=== PATIENT | female | born 2000 | race Hispanic/Latino ===

== ENCOUNTER 2018-07-11 10:20 | Observation (INO) | payer BC ==
[2018-07-11 11:19] LABS: Urine Blood 1+ (NEG); Urine Glucose NEGATIVE (NEG); Urine Protein NEGATIVE (NEG)
[2018-07-11 11:20] LABS: Urine Bacteria <20 /HPF (<20); Urine Culture Reflex Order NOT NEEDED; Urine Mucus LIGHT /HPF (NONE SEEN)
[2018-07-11 11:28] LABS: ALT/SGPT 18 U/L (12-78); AST/SGOT 15 U/L (15-37); Albumin 4.4 g/dL (3.4-5.0); Alkaline Phosphatase 162 U/L (45-117); BUN Blood Urea Nitrogen 8 mg/dL (7-18); Bicarbonate 25 mmol/L (21-32); Bilirubin Direct 0.3 mg/dL (0-0.2); Bilirubin Total 1.9 mg/dL (0.2-1.0); Glucose Level 96 mg/dL (74-106); Lipase 66 U/L (73-393); Potassium 3.4 mmol/L (3.5-5.1); Protein, Total 8.4 g/dL (6.4-8.2); Sodium Level 140 mmol/L (136-145)
[2018-07-11 11:34] LABS: Absolute Lymphocytes (CBC) 1.3 K/uL (0.7-4.9); Absolute Monocytes 1.2 K/uL (0.1-1.3); Absolute Neutrophil 15.5 K/uL (1.8-8.0); Basophils % 0.2 % (0-1.3); Eosinophils % 0.1 % (0-4.4); Hematocrit 43.5 % (36.0-45.0); Lymphocytes % 7.5 % (15.3-44.8); MPV 8.1 fL (7.6-11.3); Monocytes % 6.4 % (3.3-12.3); RBC Red Blood Cell Count 4.99 M/uL (3.86-4.86)
[2018-07-11 13:14] LABS: Platelet Estimate ADEQ; Urine White Blood Cell Casts OK
[2018-07-11 13:15] LABS: Blood Morphology Comment NOT SEEN (NOT SEEN)
--- NOTE | 2018-07-11 15:09 | RAD REPORT ---
EXAM DESCRIPTION: CT - Abdomen Pelvis W Contrast - 07/11/2018 2:43 pm CLINICAL HISTORY: Abdominal pain. Right lower quadrant pain COMPARISON: None. TECHNIQUE: Computed axial tomography of the abdomen and pelvis was obtained. 100 cc Isovue-300 is ad ministered intravenously. Oral contrast was given. All CT scans are performed using dose optimization technique as appropriate and may include automated exposure control or mA/KV adjustment according to patient size. FINDINGS: The liver, spleen, pancreas, adrenals and kidneys appear unremarkable. The appendix is thickened with stranding within the adjacent. There is no evidence of diverticulitis 2.2 centimeter right ovarian dermoid IMPRESSION: Appendicitis 2.2 centimeter right ovarian dermoid
[2018-07-11] MEDS ORDERED: METRONIDAZOLE 500mg IVPB 500 MG/100 ML BAG IV ONE (15:36)
[2018-07-11] MEDS ORDERED: CEFOXITIN/SWI 1gm 1 GM/10 ML SYR ONE ×3 (15:36→23:45)
[2018-07-11] MEDS ORDERED: MORPHINE 4 MG/ML SYR ONE (15:36)
[2018-07-11] MEDS ORDERED: ONDANSETRON 4 MG/2 ML VIAL ONE ×2 (15:43→17:44)
--- NOTE | 2018-07-11 15:47 | EDPHYS ---
Physician Documentation [facility] Name: Ailin Ivey Age: 18 yrs Sex: Female : 2000 Arrival Date: 07/11/2018 Time: 10:24 Bed 15 Private MD: None, None ED Physician John Young HPI: 07/11 11:00 This 18 yrs old Female presents to ER via Ambulatory with complaints of cp Abdominal Pain, Vomiting. 11:00 The patient presents with abdominal pain right lower quadrant. Onset: The cp symptoms/episode began/occurred yesterday. 11:00 The symptoms do not radiate. Associated signs and symptoms: Pertinent positives: nausea cp and vomiting, anorexia, Pertinent negatives: blood in stools, constipation, diarrhea, dysuria, fever, vaginal discharge. The symptoms are described as constant. Modifying factors: the symptoms are aggravated by movement, pressure. Severity of pain: in the emergency department the pain is actually worse mildly. 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 - Social history:: Smoking status: Patient/guardian denies using tobacco. - Ebola Screening: : Patient negative for fever greater than or equal to 101.5 degrees Fahrenheit, and additional compatible Ebola Virus Disease symptoms. ROS: 11:10 Constitutional: Negative for body aches, chills, fever, poor PO intake. cp 11:10 Eyes: Negative for injury, pain, redness, and discharge. cp 11:10 ENT: Negative for drainage from ear(s), ear pain, sore throat, difficulty swallowing, difficulty handling secretions. 11:10 Cardiovascular: Negative for chest pain, palpitations. 11:10 Respiratory: Negative for cough, shortness of breath, wheezing. 11:10 Abdomen/GI: Positive for abdominal pain, vomiting, of the right lower quadrant, Negative for diarrhea, constipation, black/tarry stool, rectal bleeding. 11:10 Back: Negative for pain at rest, pain with movement, radiated pain. 11:10 : Negative for urinary symptoms, pelvic pain, vaginal bleeding, vaginal discharge. 11:10 Skin: Negative for cellulitis, rash. 11:10 Neuro: Negative for altered mental status, headache, weakness. 11:10 All other systems are negative. Exam: 11:15 Constitutional: The patient appears in no acute distress, alert, awake, non-toxic, well cp developed, well nourished. 11:15 Head/Face: Normocephalic, atraumatic. cp 11:15 Eyes: Periorbital structures: appear normal, Conjunctiva: normal, no exudate, no injection, Sclera: no appreciated abnormality, Lids and lashes: appear normal, bilaterally. 11:15 ENT: External ear(s): are unremarkable, Nose: is normal, Mouth: Lips: moist, Oral mucosa: pink and intact, moist, Posterior pharynx: is normal, airway is patent, no erythema, no exudate. 11:15 Chest/axilla: Inspection: normal, Palpation: is normal, no crepitus, no tenderness. 11:15 Cardiovascular: Rate: normal, Rhythm: regular, Heart sounds: murmur, not appreciated, JVD: is not appreciated. 11:15 Respiratory: the patient does not display signs of respiratory distress, Respirations: normal, no use of accessory muscles, no retractions, no splinting, no tachypnea, labored breathing, is not present, Breath sounds: are clear throughout, no decreased breath sounds, no stridor, no wheezing. 11:15 Abdomen/GI: Inspection: abdomen appears normal, Bowel sounds: active, all quadrants, Palpation: soft, in all quadrants, moderate abdominal tenderness, in the right lower quadrant, rebound tenderness, is not appreciated, voluntary guarding, is elicited in the right lower quadrant. 11:15 Back: pain, is absent, ROM is normal. 11:15 Skin: no rash present. Vital Signs: 10:32 BP 124 / 83; Pulse 95; Resp 18; Temp 98.1; Pulse Ox 100% ; Weight 53.07 kg; Height 5 sv ft. 2 in. (157.48 cm); Pain 9/10; 11:30 BP 125 / 80; Pulse 77; Resp 15; Pulse Ox 99% on R/A; rb1 12:30 BP 123 / 79; Pulse 68; Resp 16; Pulse Ox 100% on R/A; rb1 13:30 BP 126 / 81; Pulse 88; Resp 17; Pulse Ox 99% ; rb1 14:48 BP 121 / 79; Pulse 89; Resp 16; Pulse Ox 99% on R/A; rb1 15:44 BP 137 / 92; Pulse 103; Resp 16; Pulse Ox 100% on R/A; rb1 16:44 BP 148 / 96; Pulse 102; Resp 16; Pulse Ox 99% on R/A; rb1 10:32 Body Mass Index 21.40 (53.07 kg, 157.48 cm) sv MDM: 10:34 Patient medically screened. cp 11:00 Differential diagnosis: appendicitis, Ectopic , Ovarian Torsion, Pelvic cp Inflammatory Disease, Pyelonephritis, Ureterolithiasis, urinary tract infection. 15:30 Physician consultation: Ok Fuentes MD was contacted at 15:25, regarding patient's cp condition, would like consultation with THERAPY ADMINISTRATIVE ASSISTANT. 15:35 Data reviewed: vital signs, nurses notes, lab test result(s), radiologic studies, CT cp scan, I have discussed the patient's presentation/case with the attending Emergency Department Physician; and as a result, I will admit patient. 15:50 Physician consultation: Rachid Rutledge DO was called at 15:40, regarding admission, to cp the medical/surgical unit. patient's condition, and will see patient in ED, shortly. 07/11 10:49 Order name: Basic Metabolic Panel; Complete Time: 11:34 cp 07/11 11:36 Interpretation: Normal except: K 3.4. cp 07/11 10:49 Order name: CBC with Diff; Complete Time: 15:33 cp 07/11 11:35 Interpretation: Normal except: WBC 18.1; RBC 4.99; YOLANDA% 85.8; LYM% 7.5; NEUT A 15.5. cp 07/11 10:49 Order name: Creatinine for Radiology; Complete Time: 11:34 cp 07/11 10:49 Order name: Hepatic Function; Complete Time: 11:34 cp 07/11 11:35 Interpretation: Normal except: ALK 162; BILIT 1.9; BILID 0.3; TP 8.4; GLOB 4.0. cp 07/11 10:49 Order name: Lipase; Complete Time: 11:34 cp 07/11 10:49 Order name: Urine Microscopic Only; Complete Time: 11:34 cp 07/11 11:35 Interpretation: Normal except: URBC 5-10; SQEPI 5-10. cp 07/11 11:11 Order name: Urine Dipstick--Ancillary (enter results); Complete Time: 11:34 mw2 07/11 15:35 Interpretation: Normal except: UKET 1+; UBLD 1+. cp 07/11 11:11 Order name: Urine --Ancillary (enter results); Complete Time: 11:34 mw2 07/11 11:35 Order name: CT Abd/Pelvis - W/Contrast: give oral contrast; Complete Time: 15:33 cp 07/11 11:35 Order name: CBC Smear Scan; Complete Time: 15:33 EDMS 07/11 10:49 Order name: IV Saline Lock; Complete Time: 11:08 cp 07/11 10:49 Order name: Labs collected and sent; Complete Time: 11:09 cp 07/11 10:49 Order name: Urine Dipstick-Ancillary (obtain specimen); Complete Time: 11:09 cp 07/11 10:49 Order name: Urine Test (obtain specimen); Complete Time: 11:09 cp 07/11 15:16 Order name: NPO; Complete Time: 15:48 cp Administered Medications: 15:30 Drug: Mefoxin 1 grams Route: IVPB; Infused Over: 30 mins; Site: right antecubital; hb 15:30 Drug: Flagyl 500 mg Volume: 100 ml; Route: IVPB; Rate: 200 ml/hr; Infused Over: 30 hb mins; Site: right antecubital; 15:32 Drug: morphine 2 mg Route: IVP; Site: right antecubital; hb 15:36 Drug: Zofran 4 mg Route: IVP; Site: right antecubital; hb Disposition: 07/12 07:56 Co-signature as Attending Physician, John Young MD I agree with the assessment and [facility] plan of care. Disposition: 07/11/18 15:46 Hospitalization ordered by Rachid Rutledge for Observation. Preliminary diagnosis is Acute appendicitis. - Bed requested for Telemetry/MedSurg (observation). - Status is Observation. rb1 - Condition is Stable. - Problem is new. - Symptoms have improved. UTI on Admission? No Signatures: Dispatcher [employer] EDJen Mann RN RN sv Anderson, Corey, MD MD cha Page, Corey, PA PA cp Barber, Rebecca, RN RN rb1 Kayla Mosqueda RN RN Corrections: (The following items were deleted from the chart) 07/11 16:46 15:46 Hospitalization Ordered by Rachid Rutledge DO for Observation. Preliminary rb1 diagnosis is Acute appendicitis. Bed requested for Telemetry/MedSurg (observation). Status is Observation. Condition is Stable. Problem is new. Symptoms have improved. UTI on Admission? No. cp
--- NOTE | 2018-07-11 15:47 | ER ---
Nurse's Notes [facility] Name: Ailin Ivey Age: 18 yrs Sex: Female : 2000 Arrival Date: 07/11/2018 Time: 10:24 Bed 15 Private MD: None, None Diagnosis: Acute appendicitis Presentation: 07/11 10:31 Presenting complaint: Patient states: lower abd pain with R>L, n/v x 1 day. Transition sv of care: patient was not received from another setting of care. Onset of symptoms was July 10, 2018. Care prior to arrival: None. 10:31 Method Of Arrival: Ambulatory sv 10:31 Acuity: COCO 3 sv 10:35 Risk Assessment: Do you want to hurt yourself or someone else? Patient reports no rb1 desire to harm self or others. Initial Sepsis Screen: Does the patient meet any 2 criteria? No. Patient's initial sepsis screen is negative. Does the patient have a suspected source of infection? No. Patient's initial sepsis screen is negative. 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 - Social history:: Smoking status: Patient/guardian denies using tobacco. - Ebola Screening: : Patient negative for fever greater than or equal to 101.5 degrees Fahrenheit, and additional compatible Ebola Virus Disease symptoms. Screenin:35 Abuse screen: Denies threats or abuse. Nutritional screening: No deficits noted. rb1 Tuberculosis screening: No symptoms or risk factors identified. Fall Risk None identified. Assessment: 10:35 General: Appears in no apparent distress. comfortable, Behavior is calm, cooperative, rb1 Denies fever. Pain: Complains of pain in right lower quadrant Pain currently is 6 out of 10 on a pain scale. Pain began this morning. Pain: Pain does not radiate. Neuro: Level of Consciousness is awake, alert, obeys commands, Oriented to person, place, time, situation. Cardiovascular: Capillary refill < 3 seconds is brisk in bilateral fingers. Respiratory: Airway is patent Respiratory effort is even, unlabored, Respiratory pattern is regular, symmetrical. GI: Bowel sounds present X 4 quads. Abd is soft Reports nausea, vomiting, since 0300 this morning. : No signs and/or symptoms were reported regarding the genitourinary system. Derm: Skin is pink, warm \T\ dry. Musculoskeletal: cerebral palsy. 11:30 Reassessment: Patient appears in no apparent distress at this time. No changes from rb1 previously documented assessment. Family at bedside. 12:30 Reassessment: Patient appears in no apparent distress at this time. Patient and/or rb1 family updated on plan of care and expected duration. Pain level reassessed. Patient is alert, oriented x 3, equal unlabored respirations, skin warm/dry/pink. 13:30 Reassessment: Patient appears in no apparent distress at this time. No changes from rb1 previously documented assessment. Pt. is on her phone. 14:30 Reassessment: Patient appears in no apparent distress at this time. Patient and/or rb1 family updated on plan of care and expected duration. Pain level reassessed. Patient is alert, oriented x 3, equal unlabored respirations, skin warm/dry/pink. 15:30 Reassessment: Patient appears in no apparent distress at this time. No changes from rb1 previously documented assessment. Family at bedside. 15:49 Reassessment: Dr. Rutledge is at bedside. rb1 16:30 Reassessment: Patient appears in no apparent distress at this time. Patient and/or rb1 family updated on plan of care and expected duration. Pain level reassessed. Patient is alert, oriented x 3, equal unlabored respirations, skin warm/dry/pink. Family at bedside. Vital Signs: 10:32 BP 124 / 83; Pulse 95; Resp 18; Temp 98.1; Pulse Ox 100% ; Weight 53.07 kg; Height 5 sv ft. 2 in. (157.48 cm); Pain 9/10; 11:30 BP 125 / 80; Pulse 77; Resp 15; Pulse Ox 99% on R/A; rb1 12:30 BP 123 / 79; Pulse 68; Resp 16; Pulse Ox 100% on R/A; rb1 13:30 BP 126 / 81; Pulse 88; Resp 17; Pulse Ox 99% ; rb1 14:48 BP 121 / 79; Pulse 89; Resp 16; Pulse Ox 99% on R/A; rb1 15:44 BP 137 / 92; Pulse 103; Resp 16; Pulse Ox 100% on R/A; rb1 16:44 BP 148 / 96; Pulse 102; Resp 16; Pulse Ox 99% on R/A; rb1 10:32 Body Mass Index 21.40 (53.07 kg, 157.48 cm) ED Course: 10:24 Patient arrived in ED. mr 10:24 None, None is Private Physician. mr 10:32 Triage completed. sv 10:33 John Chanel PA is PHCP. cp 10:33 John Young MD is Attending Physician. cp 10:33 Arm band placed on. sv 10:35 Patient has correct armband on for positive identification. Bed in low position. Call rb1 light in reach. Side rails up X 1. Pulse ox on. NIBP on. 10:40 Mariaa Simmons RN is Primary Nurse. rb1 11:00 Urine collected: clean catch specimen, clear. dh3 11:01 Initial lab(s) drawn, by az, sent to lab. Inserted saline lock: 22 gauge in right dh3 antecubital area, using aseptic technique. Blood collected. 14:43 CT Abd/Pelvis - W/Contrast: give oral contrast In Process Unspecified. EDMS 15:45 Rachid Rutledge DO is Hospitalizing Provider. cp 16:46 No provider procedures requiring assistance completed. Patient admitted, IV remains in rb1 place. Administered Medications: 15:30 Drug: Mefoxin 1 grams Route: IVPB; Infused Over: 30 mins; Site: right antecubital; hb 15:30 Drug: Flagyl 500 mg Volume: 100 ml; Route: IVPB; Rate: 200 ml/hr; Infused Over: 30 hb mins; Site: right antecubital; 15:32 Drug: morphine 2 mg Route: IVP; Site: right antecubital; hb 15:36 Drug: Zofran 4 mg Route: IVP; Site: right antecubital; hb Outcome: 15:46 Decision to Hospitalize by Provider. cp 16:46 Patient left the ED. rb1 16:46 Admitted to OR accompanied by nurse, family with patient, via stretcher, with chart. rb1 16:46 Condition: stable 16:46 Instructed on the need for admit. Signatures: Dispatcher [employer] EDAZ Jen Ramirez RN RN Jackie Pierce mr Page, ANGELA Lopez cp, Rebecca, RN RN rb1 Kayla Mosqueda, RN RN Maria Del Rosario Briseno 3
--- NOTE | 2018-07-11 16:31 | P.HP ---
Certification for Inpatient Patient admitted to: Observation With expected LOS: <2 Midnights Patient will require the following post-hospital care: None Practitioner: I am a practitioner with admitting privileges, knowledge of patient current condition, hospital course, and medical plan of care. Services: Services provided to patient in accordance with Admission requirements found in Title 42 Section 412.3 of the Code of Federal Regulations Patient History Date of Service: 07/11/18 Primary Care Provider: None Reason for admission: Right lower quadrant abdominal pain History of Present Illness: 18-year-old female with prior history of cerebral palsy and distant seizure disorder. She came in with right lower quadrant abdominal pain over the last day. She had some increased nausea and vomiting today. Pain was severe. Patient denies any chest pain, shortness of breath. Some chills noted. She came to the ER for further evaluation. In the ER patient evaluated. White count 18.1, hemoglobin 14.8. Sodium 140, potassium 3.4. Glucose 96. test negative. CT scan shows acute appendicitis. An incidental finding of a 2.2 right ovarian dermoid also noted. Patient will be admitted for further evaluation and treatment. Surgery has been informed. When I saw the patient in the ER, pain under control. Patient reported a rash with morphine. Patient does not take any medication. Patient reports a history of seizures but in the distant past. It has been over 8 years since her last seizure. She was previously seen by Pediatrics and pediatric neurology. She is not seen them since turning 16. With her cerebral palsy she has some mobility issues. She has numbness to the left side. Home medications list reviewed: No - Past Medical/Surgical History Diabetic: No -: Cerebral palsy with mobility dysfunction -: History of distant seizures -: Left foot surgery Psychosocial/ Personal History: Patient lives with her mother. She is single. She has no children - Family History Mother -: Cancer (Strong family history of triple negative breast cancer) - Social History Smoking Status: Never smoker Alcohol use: No CD- Drugs: No Caffeine use: No Place of Residence: Home Review of Systems General: Fever, Chills, Weakness, As per HPI Eyes: Unremarkable ENT: Unremarkable Respiratory: Unremarkable Cardiovascular: Unremarkable Gastrointestinal: Nausea, Vomiting, Abdominal Pain, As per HPI Genitourinary: Unremarkable Musculoskeletal: Unremarkable Integumentary: Unremarkable Neurological: Unremarkable Lymphatics: Unremarkable Physical Examination - Physical Exam General: Alert, In no apparent distress, Oriented x3, Cooperative HEENT: Atraumatic, Normocephalic, Mucous membr. moist/pink Neck: Supple, No Thyromegaly Respiratory: Clear to auscultation bilaterally, Normal air movement Cardiovascular: Normal pulses, Regular rate/rhythm Gastrointestinal: Normal bowel sounds, Soft and benign, Non-distended, No masses , No rebound, No guarding, Tenderness (Mild pain to the right lower quadrant with palpation) Musculoskeletal: No tenderness, No warmth, Other (Some leg leak discrepancy noted. Numbness to the left side due to her cerebral palsy. Left lower extremity externally rotated) Integumentary: No warmth, No cyanosis Neurological: Normal speech, Normal strength at 5/5 x4 extr, Normal tone, Normal affect - Studies Laboratory Data (last 24 hrs) 07/11/18 11:00: Creatinine 0.57 07/11/18 11:00: WBC 18.1 H, Hgb 14.8, Hct 43.5, Plt Count 369 07/11/18 11:00: Sodium 140, Potassium 3.4 L, BUN 8, Creatinine 0.58, Glucose 96 , Total Bilirubin 1.9 H, AST 15, ALT 18, Alkaline Phosphatase 162 H, Lipase 66 L Assessment and Plan - Plan Impression: Nausea, vomiting with right lower quadrant abdominal pain secondary to acute appendicitis with noted 2.2 cm ovarian dermoid Cerebral palsy with mobility dysfunction History of distant seizures not on medication Plan: Nausea, vomiting with right lower quadrant abdominal pain secondary to acute appendicitis with noted 2.2 cm ovarian dermoid: Patient will be admitted for further evaluation and treatment. Surgery has been consulted. Surgery may console gynecology to further address ovarian dermoid. Patient will likely have surgical intervention today. Will keep the patient NPO. Mefoxin and Flagyl has been started. Will continue with SCDs for DVT prophylaxis. Discontinue morphine as this may have caused a mild rash. Will provide other alternative. I will turn the service over to Dr. Bryant tomorrow. I will go over the plan of care with her. Likely discharge in the next 24 hr. Cerebral palsy with mobility dysfunction: This has remained stable. She has not followed up with a PCP in over 2 years since she turned 16. She had a manager budget and a pediatric neurologist prior to that time. Patient will need PCP information to establish care as an outpatient. History of distant seizures not on medication: Last seizure noted a years ago. Patient not on any medication. She has seen pediatric Neurology in the past. Discharge Plan: Home Plan to discharge in: 24 Hours - Advance Directives Does patient have a Living Will: No Does patient have a Durable POA for Healthcare: No - Code Status/Comfort Care Code Status Assessed: Yes (Patient full code.) Time Spent Managing Pts Care (In Minutes): 55
[2018-07-11] MEDS ORDERED: BUPIVACAINE 0.5% PF 10 ML VIAL ONE (17:01)
[2018-07-11] MEDS ORDERED: ACETAMINOPHEN 650MG/RECT SUPP PR PRN (17:04)
[2018-07-11] MEDS ORDERED: ACETAMINOPHEN 500 MG TAB PO PRN (17:04)
[2018-07-11] MEDS ORDERED: ONDANSETRON 4 MG/2 ML VIAL IV PRN (17:04)
[2018-07-11] MEDS ORDERED: FENTANYL CITR 100 MCG/2 ML IV PRN (17:04)
[2018-07-11] MEDS: NA CHLORIDE 0.9% 1,000 ML IV SCH ×2 (17:04→20:07)
[2018-07-11] MEDS ORDERED: Ringers Lactate 1,000 ML IV ONE (17:11)
[2018-07-11] MEDS ORDERED: ROCURONIUM 50 MG/5 ML VIAL IV ONE ×2 (17:26→17:27)
[2018-07-11] MEDS ORDERED: PROPOFOL 200 MG/20 ML VIAL IV ONE (17:26)
[2018-07-11] MEDS ORDERED: FENTANYL CITR 100 MCG/2 ML ONE (17:28)
[2018-07-11] MEDS ORDERED: LIDOCAINE 2% MPF 5 ML VIAL ONE (17:29)
[2018-07-11] MEDS ORDERED: KETOROLAC 30 MG/ML INJ ONE (17:44)
[2018-07-11] MEDS ORDERED: DEXAMETHASONE 10 MG/ML VIAL ONE (17:44)
[2018-07-11] MEDS ORDERED: NEOSTIGMINE 1 MG/ML -10 ML VIAL ONE (17:58)
[2018-07-11] MEDS ORDERED: GLYCOPYRROLATE 0.2 MG/ML SYR ONE (17:58)
[2018-07-11] MEDS ORDERED: CEFOXITIN/SWI 1gm 1 GM/10 ML SYR IVP SCH (18:00)
[2018-07-11] MEDS ORDERED: CEFOXITIN SODIUM 1 GM/VIAL IVPB SCH (18:00)
--- NOTE | 2018-07-11 18:10 | P.OP ---
Preoperative diagnosis: Acute Appy Postoperative diagnosis: same Primary procedure: Lap Appy Anesthesia: gen Estimated blood loss: min Specimen: appy Findings: as above Complications: None Transferred to: Recovery Room Condition: Good
--- NOTE | 2018-07-11 18:10 | P.CNS ---
Date of Consult: 07/11/18 Patient is a 18-year-old G0 LMP 06/21/2018 who presented to the emergency department with acute right lower quadrant pain. Patient was evaluated by the medicine team as well as General surgery and was found to have acute appendicitis. At the time 1 imaging was performed patient was also noted to have a right ovarian 2.2 cm dermoid cyst. I was called to evaluate the cyst intraoperatively. During procedure was allowed to visualize the ovaries and the uterus uterus appears normal no fibroids noted bilateral fallopian tubes appeared normal. Both ovaries appear slightly enlarged. Dermoid cyst is not visible is intrathecal. The right ovary does appear slightly enlarged as compared to the left ovary. However it also seems very cystic. There is no clear plane in the way of the dermoid may be located on the cyst. I informed general anesthesia at this time that I feel it would be best to hold off on performing the surgery. I recommended that we should do serial evaluations of the ovaries with ultrasound monitoring and if pain develops or if the cyst begins to grow larger than we will plan for surgical excision of the cyst and possible oophorectomy 1 the patient is able to give full consent for oophorectomy. I then relate these findings to the family. All questions were answered. I informed the family that the patient should follow up with me in 2 weeks. Patient is to call the office on Thursday and inform them and schedule an appointment. Thank you for consultation.
[2018-07-11] MEDS ORDERED: Mastisol Adhesive Liq ONE (18:15)
[2018-07-11] MEDS ORDERED: HYDROCODONE/APAP 7.5/325 MG TAB PO PRN (18:23)
[2018-07-11] MEDS: FAMOTIDINE 20 MG/2 ML VIAL IV SCH (20:07)
[2018-07-11] MEDS: KCL 20 MEQ/100 mL IVPB 20 MEQ/100 ML BAG IV SCH ×2 (20:09→23:02)
--- NOTE | 2018-07-11 21:07 | PREOPCON ---
Date of Consultation: 07/11/2018 Chief Complaint: Abdominal pain. History Of Present Illness: The patient is a 18-year-old female, comes in with acute onset of right lower quadrant pain associated with vomiting and nausea. No diarrhea or constipation. No blood in h er stool. No dysuria, hematuria. No sore throat, runny nose, cough, headaches, or dizziness. No ch est pain. No fever or chills. Constant in nature. No vaginal discharge. Review of Systems: Otherwise unremarkable. Past Medical History: Significant for cerebral palsy, and seizure disorder. Last seizure being grea ter than 8 years ago. Past Surgical History: Foot surgery. Allergies: INCLUDE PENICILLIN. Social History: She does not smoke or drink. Family History: Significant and noncontributory. Physical Examination: Vital signs: Her vital signs are stable. She is currently afebrile. General: She is awake, alert, and oriented x3. Head and Neck: Cranial nerves 2 through 12 grossly within normal limits. No neck masses. No JVD. Throat clear. Neck is supple. Chest: Clear. Heart: S1 and S2. Abdomen: Soft, nondistended. Positive bowel sounds. Positive Rovsing sign. Positive right lower q uadrant tenderness with rebound. No rigidity or guarding. Extremity: Adequately perfused. Nontender. Neuro: Nonfocal. Diagnostic Data: CT scan of the abdomen and pelvis shows findings consistent with acute appendicitis as well as right ovarian dermoid cyst 2.2 cm. White count is elevated at 18,000. Remaining of labo ratory data reviewed. Assessment: Acute appendicitis and right ovarian mass. Recommendation: Admit n.p.o., IV fluid, IV antibiotic, to the OR for diagnostic lab. Laparoscopic a ppendectomy, possible open. I discussed the case with Dr. Grande who will come and evaluate the ovari es to see if any intervention needs to be done with regard to that and she will determine that proces s. The patient's family understand the risks, benefits, and alternatives and agreed to procedure. /MODL Voice ID: [id number] Report ID: [id number]
[2018-07-11] MEDS: CEFOXITIN/SWI 1gm 1 GM/10 ML SYR IVP SCH (23:24)
--- NOTE | 2018-07-11 23:31 | OP ---
Date of Procedure: 07/11/2018 Surgeon: Ok Fuentes MD Preoperative Diagnoses: 1.Acute appendicitis. 2.Right ovarian mass. Postoperative Diagnoses: 1.Acute appendicitis. 2.Right ovarian mass. Procedure Peformed: Diagnostic laparoscopy and laparoscopic appendectomy. Estimated Blood Loss: Minimal. Specimen: Appendix. Findings: As above. Right ovarian cyst was identified and Dr. Grande did an intraoperative consultat ion on it. Anesthesia: General. Complications: None. Disposition: The patient tolerated the procedure in stable condition and taken to Recovery in good g eneral condition. Procedure In Detail: The patient was brought to the OR and placed in supine position. General anest hesia was began. The patient was prepped and draped in usual sterile fashion. Marcaine 0.5% was inf iltrated locally. A 15 blade was used to make a 1 cm supraumbilical midline incision. Subcutaneous tissue was divided. The fascia was identified and divided. A #1 Vicryl stay suture was placed. Per itoneal cavity was entered with sharp and blunt dissection. A 12 mm trocar was placed into the perit mendoza cavity under direct vision. Pneumoperitoneum was established. Then, two 5 mm trocars were anel tracie, 1 in the left lower quadrant and 1 in the suprapubic region. Diagnostic laparoscopy revealed no rmal liver, normal gallbladder, normal colon, normal intestine, normal peritoneal surface. The uteru s and left ovary were within normal limits. Right ovary appeared a little enlarged. Appendix was co nsistent with acute suppurative appendicitis and was fairly long. Base of the appendix and mesoappen alexandra clearly identified. Endo-JAZMINE stapling device was used in a sequential fashion to divide both str uctures and then EndoCatch bag was used to remove the appendix. The right lower quadrant was examine d. No evidence of bleeding or bowel injury appreciated. Effluent clear. Then, Dr. Grande was consul mukesh. She evaluated the ovary and opted to repeat the ultrasound in few months and then re-evaluate t he situation. She discussed all of the options with the family. Subsequently, all trocars were deborah christina under direct vision. Stay sutures were tied to each other across the fascial defect. Subcutaneo us wounds were irrigated. Bleeding controlled with cautery. 2-0 chromic was used to approximate sub cutaneous tissue and close the skin. Sterile dressing was applied. The patient was awakened and benny en to Recovery in good general condition. BRIANNA/FELISA Voice ID: [id number] Report ID: [id number]
[2018-07-12] MEDS: METRONIDAZOLE 500mg IVPB 500 MG/100 ML BAG IV SCH ×2 (01:31→09:06)
[2018-07-12] MEDS: NA CHLORIDE 0.9% 1,000 ML IV SCH (02:53)
[2018-07-12] MEDS: CEFOXITIN/SWI 1gm 1 GM/10 ML SYR IVP SCH ×2 (05:25→11:51)
[2018-07-12 06:09] LABS: Absolute Lymphocytes (CBC) 0.7 K/uL (0.7-4.9); Absolute Monocytes 0.2 K/uL (0.1-1.3); Absolute Neutrophil 11.5 K/uL (1.8-8.0); Basophils % 0.1 % (0-1.3); Hematocrit 38.3 % (36.0-45.0); Lymphocytes % 5.4 % (15.3-44.8); MPV 8.2 fL (7.6-11.3); Monocytes % 1.5 % (3.3-12.3); RBC Red Blood Cell Count 4.36 M/uL (3.86-4.86)
[2018-07-12 06:30] LABS: ALT/SGPT 17 U/L (12-78); AST/SGOT 15 U/L (15-37); Albumin 3.5 g/dL (3.4-5.0); Alkaline Phosphatase 130 U/L (45-117); BUN Blood Urea Nitrogen 10 mg/dL (7-18); Bicarbonate 21 mmol/L (21-32); Bilirubin Total 1.4 mg/dL (0.2-1.0); Glucose Level 111 mg/dL (74-106); Magnesium 2.1 mg/dL (1.8-2.4); Potassium 4.2 mmol/L (3.5-5.1); Protein, Total 7.2 g/dL (6.4-8.2); Sodium Level 138 mmol/L (136-145)
[2018-07-12] MEDS: FAMOTIDINE 20 MG/2 ML VIAL IV SCH (09:06)
--- NOTE | 2018-07-12 10:37 | P.SSS ---
Patient History Date of Service: 07/12/18 Primary Care Provider: None Reason for admission: Right lower quadrant abdominal pain History of Present Illness: 18-year-old female with prior history of cerebral palsy and distant seizure disorder. She came in with right lower quadrant abdominal pain over the last day. She had some increased nausea and vomiting today. Pain was severe. Patient denies any chest pain, shortness of breath. Some chills noted. She came to the ER for further evaluation. In the ER patient evaluated. White count 18.1, hemoglobin 14.8. Sodium 140, potassium 3.4. Glucose 96. test negative. CT scan shows acute appendicitis. An incidental finding of a 2.2 right ovarian dermoid also noted. Patient will be admitted for further evaluation and treatment. Surgery has been informed. When I saw the patient in the ER, pain under control. Patient reported a rash with morphine. Patient does not take any medication. Patient reports a history of seizures but in the distant past. It has been over 8 years since her last seizure. She was previously seen by Pediatrics and pediatric neurology. She is not seen them since turning 16. With her cerebral palsy she has some mobility issues. She has numbness to the left side. Allergies Penicillins Adverse Reaction (Verified 07/11/18 18:07) rash, swollen eye lids morphine Adverse Reaction (Uncoded 07/11/18 20:21) Rash Home Medications: NK [No Home Meds] 07/11/18 - Past Medical/Surgical History Has patient received pneumonia vaccine in the past: No Diabetic: No -: cerebral palsy -: seizure -: weakness L arm -: Left foot surgery Psychosocial/ Personal History: Patient lives with her mother. She is single. She has no children - Family History Mother -: Cancer - Social History Smoking Status: Never smoker Alcohol use: No CD- Drugs: No Caffeine use: No Place of Residence: Home Review of Systems 10-point ROS is otherwise unremarkable Physical Examination - Vital Signs Temperature: 97.8 F Blood Pressure: 104/54 Pulse: 68 Respirations: 18 Pulse Ox (%): 99 - Physical Exam General: Alert, In no apparent distress HEENT: Atraumatic, PERRLA, Mucous membr. moist/pink, EOMI, Sclerae nonicteric Neck: Supple, 2+ carotid pulse no bruit, No LAD, Without JVD or thyroid abnormality Respiratory: Clear to auscultation bilaterally, Normal air movement Cardiovascular: Regular rate/rhythm, Normal S1 S2 Gastrointestinal: Normal bowel sounds, No tenderness Musculoskeletal: No tenderness Integumentary: No rashes Neurological: Normal gait, Normal speech, Normal strength at 5/5 x4 extr, Normal tone, Normal affect Lymphatics: No axilla or inguinal lymphadenopathy - Studies Laboratory Data (last 24 hrs) 07/11/18 11:00: Creatinine 0.57 07/11/18 11:00: WBC 18.1 H, Hgb 14.8, Hct 43.5, Plt Count 369 07/11/18 11:00: Sodium 140, Potassium 3.4 L, BUN 8, Creatinine 0.58, Glucose 96 , Total Bilirubin 1.9 H, AST 15, ALT 18, Alkaline Phosphatase 162 H, Lipase 66 L - Diagnosis (Problem(s)) (1) Acute appendicitis Current Visit: Yes Status: Acute Treatment Summary: Over all during the hospital stay patient remained stable Patient was initially admitted to the hospital for acute appendicitis. At time of surgery consulted. At laparoscopic removal of the appendix and did well overall. Patient was discharged home under stable condition with the general surgery about 1-2 days post discharge. Patient was able to ambulate covered her diet and has passed gas before discharge home. - Disposition Disposition: ROUTINE DISCHARGE Condition: GOOD Diet: Regular Activity: Ad roya
--- NOTE | 2018-07-12 16:24 | PN ---
Subjective: The patient is awake, alert. No complaint. Objective: VITAL SIGNS: Vital signs stable, afebrile. White count is down to 12,000. ABDOMEN: Benign. Assessment: Status post laparoscopic appendectomy. Plan: The patient cleared from surgical point for discharge. Simin ordered Tylenol No [address] for [address] Follow with Dr. Grande regarding the right ovarian cyst. No heavy lifting. Keep Steri-Str ips on at all times. /MODL Voice ID: [id number] Report ID: [id number]
== END 2018-07-12 12:21 | disposition home or self-care (01) ==
LOC: ER 10:20 → ERHOLD 16:10 → 4TH 18:30
PROVIDERS: ADMIT Family Medicine; ATTEND Family Medicine
PROC: 0DTJ4ZZ Resection of Appendix, Percutaneous Endoscopic Approach (ICD-10-PCS; principal; 2018-07-11 17:30)
DX: K35.80 Unspecified acute appendicitis (principal); G80.4 Ataxic cerebral palsy; R11.2 Nausea with vomiting, unspecified; D27.0 Benign neoplasm of right ovary; Z88.0 Allergy status to penicillin; Z88.6 Allergy status to analgesic agent
CPT/HCPCS: 36415; 74177; 80048; 80053; 80076; 81003; 81015; 81025; 83690; 83735; 85025; 87040; 88304; 96374; 96375; 99285; G0378; J1100; J2405; J2704; J2710; J3010; J7030; Q9967

== ENCOUNTER 2019-03-10 11:08 | Day surgery (SDC) | payer BC ==
[2019-03-07 14:23] LABS: Urine Appearance CLOUDY; Urine Bilirubin NEGATIVE (NEG); Urine Blood NEGATIVE (NEG); Urine Color YELLOW; Urine Glucose NEGATIVE (NEG); Urine Protein NEGATIVE (NEG); Urine Urobilinogen 0.2 mg/dL (0.2-1.0)
[2019-03-07 14:38] LABS: Urine Microscopic Reflex ORDER UMIC
[2019-03-07 14:41] LABS: Absolute Lymphocytes (CBC) 2.1 K/uL (0.7-4.9); Basophils % 0.6 % (0-1.3); Hematocrit 40.9 % (36.0-45.0); Lymphocytes % 38.5 % (15.3-44.8); MPV 7.9 fL (7.6-11.3); RBC Red Blood Cell Count 4.72 M/uL (3.86-4.86)
[2019-03-07 15:18] LABS: Urine Bacteria 20-50 /HPF (<20); Urine Culture Reflex Order REFLEXED; Urine RBC <5 /HPF (NONE SEEN)
[~2019-03-10 11:08] MED LIST: SUCCINYLCHOLINE 20 MG/ML (10 ML) IV ONE
[2019-03-10] MEDS ORDERED: SCOPOLAMINE HYDROBROMIDE PATCH TD ONE (11:40)
[2019-03-10] MEDS ORDERED: Ringers Lactate 1,000 ML IV ONE ×3 (11:40→16:28)
[2019-03-10] MEDS ORDERED: BUPIVACAINE 0.25% PF 10 ML VIAL ONE (14:27)
[2019-03-10] MEDS ORDERED: propofoL 200 MG/20 ML VIAL IV ONE (14:30)
[2019-03-10] MEDS ORDERED: LIDOCAINE 2% MPF 5 ML VIAL ONE (14:31)
[2019-03-10] MEDS ORDERED: ROCURONIUM 50 MG/5 ML VIAL IV ONE (14:31)
[2019-03-10] MEDS ORDERED: FENTANYL CITR 100 MCG/2 ML ONE ×2 (14:32→15:27)
[2019-03-10] MEDS: BUPIVACAINE 0.25% PF 10 ML VIAL ONE ×2 (14:46→15:15)
[2019-03-10] MEDS ORDERED: KETOROLAC 30 MG/ML INJ ONE (15:17)
[2019-03-10] MEDS ORDERED: ONDANSETRON 4 MG/2 ML VIAL ONE ×2 (15:18→17:01)
[2019-03-10] MEDS ORDERED: dexAMETHasone 10 MG/ML VIAL ONE (15:18)
[2019-03-10] MEDS ORDERED: NEOSTIGMINE 1 MG/ML -10 ML VIAL ONE (15:24)
[2019-03-10] MEDS ORDERED: GLYCOPYRROLATE 0.2 MG/ML SYR ONE (15:24)
[2019-03-10] MEDS: HYDROMORPHONE HCL 1 MG/ML INJ ONE ×4 (16:27→16:40)
[2019-03-10] MEDS ORDERED: MEPERIDINE HCL 25 MG/0.5 ML ONE ×2 (16:43→16:48)
[2019-03-10 17:14] VITALS: BP 112/65; TEMP 98.2; O2SAT 99
[2019-03-10] MEDS ORDERED: HYDROCODONE/APAP 5/325 MG TAB ONE (17:29)
--- NOTE | 2019-03-11 02:29 | OP ---
Date of Procedure: 03/10/2019 Surgeon: Tracy Grider MD Electric Motor Tester: Megan Kuhn. Preoperative Diagnoses: Right adnexal mass, possible right ovarian cyst complex 2.2 cm and primary d ysmenorrhea, BRCA1 positive heterozygous gene mutation. Postoperative Diagnosis: Right ovarian cyst. Procedures Performed: Diagnostic laparoscopy, right oophorectomy and pelvic washings. Anesthesia: General. Specimens: Right ovary, pelvic washings. Complications: No complications. Drains: No drains. Condition: The patient's condition is stable. Findings: Right ovary with cyst present significantly enlarged than her left ovary, which appeared t o be normal. Both tubes were unremarkable. Pelvic washings were done adequately. No evidence of an y endometriosis in the peritoneal cavity on close inspection of the anterior and posterior cul-de-sac and broad ligament and lateral sidewalls. Omentum, liver, gallbladder all normal. Appendix absent. After informed consent was verified, the patient was taken back to OR. Patient is a 18-year-old who was referred for right adnexal mass. She had a right ovarian cyst that was 2.2 cm, concerning for ov heide teratoma. A CT and an ultrasound were done that were consistent with that and she was counsele d on observation with careful ultrasound followup and symptomatic followup. However, her grandmother , herself, and her paternal aunt were all present to the conversation and they had a very high degree of concern for ovarian cancer since they have a strong family history of BRCA1 positive gene mutatio ns and women who had breast cancer and ovarian cancer and , the youngest from breast cance r that passed at age 24. The patient is a 18-year-old and so after this concern was expressed, they did not want to wait, wanted removal of the cyst or the ovary. As this is an aggressive measure for the patient who is 18-year-old, [facility] where BRCA would be tested and if it is positive, then consider doing surgical treatment. So this was done, and then she was BRCA hete rozygous gene mutation positive, so referral for genetic counseling observation, careful ultrasound f ollowup periodically, loss of ovarian function leading to decreased hormonal function versus preserva tion of the ovary with close followup with very rare possibility of delayed diagnosis were all discus sed. Also discussed that the removal of tubes is the optimal procedure, but since she is very young this was not what she desired, she only wanted to have her ovary removed. So, we consented her for r ight ovarian cystectomy if possible and then right oophorectomy, but since the cyst is very small, it would make it more difficult. I explained to the patient that it would be very difficult to discern and differentiate this from other normal ovarian tissue. So if no discrete mass was seen, then ooph orectomy will be performed. She was consented. Description Of Procedure: After informed consent was verified, she was taken the OR, placed in a sup ine fashion on the operating table. General anesthesia was given, placed in the dorsal lithotomy pos ition. Arms were tucked by the side. Time-out done. SCDs started. No antibiotics indicated. Abdo men, vulva, vagina, and perineum prepped and draped in a sterile fashion. Ma to drain the bladder . A sponge on the stick in the vagina. A 1 cm infraumbilical incision made with scalpel. Fascia incised, tagged with 0 Vicryl sutures. S-r etractors were placed after peritoneum entered bluntly. Site of entry was checked and verified unrem arkable upper abdominal surfaces. Findings as above. Two 5 ports, suprapubic and left lower quadran t placed under direct vision. All fascial and skin incision sites were initially injected with Heather ine and followed by introduction. Pelvic washings were performed. Uterus was well visualized. No evidence of any mucosal abnormalitie s. Again, look at the findings. After noting that it was difficult to differentiate the cyst from t he right ovary, which was significantly larger than the left one, decided to go on and remove the rig ht ovary. So after pelvic washings were collected, then 5 mm LigaSure was used to take the ovary out and once this was detached after dissecting carefully the utero-ovarian ligament and the IP ligament , this was placed in a specimen bag, then pulled out through the umbilical incision after enlarging i t since attempts to squeeze it through were successful. Trocars were removed after thorough irrigati on and suction were performed, excellent hemostasis once trocars were removed, removal of the specime n as dictated above. The fascia closed with 0 Vicryl in a continuous running fashion at the umbilicus and then the subcuti cular 4-0 Vicryl suture for the umbilicus and then interrupted 4-0 Vicryl for other 2 incisions. Fol ey was removed. Sponge on a stick was removed. Instrument and sponge counts were correct at the end of the case. EBL minimal. Patient tolerated the procedure well. She will follow up with me [place] [facility] [place]. The contralateral ovary on the left side completely intact. Both tubes were left intact. No c hanges grossly were detected. She will be given a Lane prescription and then we can discuss the rest of the management in the offi ce. SERA/FELISA Voice ID: [id number] Report ID: [id number]
== END 2019-03-10 18:07 | disposition home or self-care (01) ==
LOC: OR 11:08
PROVIDERS: ATTEND Obstetrics & Gynecology
PROC: 0UT04ZZ Resection of Right Ovary, Percutaneous Endoscopic Approach (ICD-10-PCS; principal; 2019-03-10 12:30)
DX: N83.291 Other ovarian cyst, right side (principal); N92.0 Excessive and frequent menstruation with regular cycle; N94.4 Primary dysmenorrhea; G80.9 Cerebral palsy, unspecified; Z15.01 Genetic susceptibility to malignant neoplasm of breast; Z84.81 Family history of carrier of genetic disease
CPT/HCPCS: 87088; 85025; 87086; 36415; 86900; 88108; 86850; 81025; 86901; 88305; 88307; 87077 ×2; 87186 ×2; 58661; J2704; J2710; J3010 ×2; J1100; J2175 ×2; J1170 ×2; J7120 ×3; J2405 ×2; 81003; 81015; J0330

== ENCOUNTER 2019-03-17 12:13 | Emergency (ER) | payer BC ==
[2019-03-17] MEDS ORDERED: NA CHLORIDE 0.9% 1,000 ML ONE ×2 (12:59→14:12)
[2019-03-17] MEDS ORDERED: ONDANSETRON 4 MG/2 ML VIAL ONE (12:59)
[2019-03-17 13:17] LABS: Absolute Lymphocytes (CBC) 0.7 K/uL (0.7-4.9); Basophils % 0.4 % (0-1.3); Hematocrit 39.7 % (36.0-45.0); Lymphocytes % 6.6 % (15.3-44.8); MPV 7.7 fL (7.6-11.3); RBC Red Blood Cell Count 4.63 M/uL (3.86-4.86)
[2019-03-17 13:31] LABS: BUN Blood Urea Nitrogen 10 mg/dL (7-18); Bicarbonate 24 mmol/L (21-32); Glucose Level 121 mg/dL (74-106); Potassium 3.7 mmol/L (3.5-5.1); Sodium Level 137 mmol/L (136-145)
[2019-03-17] MEDS ORDERED: PROMETHAZINE 25 MG/ML VIAL ONE (13:44)
[2019-03-17] MEDS ORDERED: KETOROLAC 30 MG/ML INJ ONE (14:12)
--- NOTE | 2019-03-17 14:49 | RAD REPORT ---
EXAM DESCRIPTION: CTAbdomen Pelvis W Contrast - 03/17/2019 2:40 pm CLINICAL HISTORY: Abdominal pain. post-op abd pain;Abd pain COMPARISON: Abdomen Pelvis W Contrast dated 07/11/2018 TECHNIQUE: Biphasic CT imaging of the abdomen and pelvis was performed with 100 ml non-ionic IV cont rast. All CT scans are performed using dose optimization technique as appropriate and may include automated exposure control or mA/KV adjustment according to patient size. FINDINGS: The lung bases are clear. The liver, spleen, pancreas, adrenal glands and kidneys are within normal limits. No bowel obstruction, free air, free fluid or abscess. Appendectomy. No evidence of significant lym phadenopathy. No suspicious bony findings. IMPRESSION: No acute intra-abdominal or pelvic finding.
--- NOTE | 2019-03-17 15:30 | ER ---
Nurse's Notes [facility] Name: Ailin Ivey Age: 18 yrs Sex: Female : 2000 Arrival Date: 03/17/2019 Time: 12:17 Bed 18 Private MD: Diagnosis: Nausea and vomiting;Diarrhea, unspecified;Volume depletion Presentation: 03/17 12:30 Presenting complaint: Patient states: ovary removal surgery on 03/20 performed at [facility], [facility] c/o [facility]ILLO, V/D/ epigastric pain started on Thursday. CASTILLO now resolved, taking prescribed promethazine at home, no vomiting today. Vomiting/diarrhea x 3 yesterday. Reports increased vaginal bleeding post op. Transition of care: patient was not received from another setting of care. Onset of symptoms was March 15, 2019. Risk Assessment: Do you want to hurt yourself or someone else? Patient reports no desire to harm self or others. Initial Sepsis Screen: Does the patient meet any 2 criteria? HR > 90 bpm. Does the patient have a suspected source of infection? Yes: Other: recent surgery. Care prior to arrival: None. 12:30 Method Of Arrival: Ambulatory [facility] 12:30 Acuity: COCO 2 [facility] Triage Assessment: 12:37 Headache History: The patient has had previous headaches and this one is similar to [facility] previous episodes. General: Appears uncomfortable, ill, Behavior is calm, cooperative. Pain: Complains of pain in forehead Pain does not radiate. Pain currently is 7 out of 10 on a pain scale. Quality of pain is described as crampy, throbbing, pulsating, Pain began 2-3 days ago. Is intermittent. EENT: Reports itchy throat. Neuro: Level of Consciousness is awake, alert, obeys commands, Oriented to person, place, time, situation, Gait is steady, Speech is normal. Cardiovascular: Capillary refill < 3 seconds Patient's skin is warm and dry. Respiratory: Respiratory effort is even, unlabored, Respiratory pattern is regular, symmetrical. GI: Reports diarrhea, nausea, vomiting. COPPER MINER BLASTING: 12:37 LMP 02/20/2019 5 Historical: - Allergies: 12:37 Morphine; sr5 12:37 PENICILLINS; sr5 - PMHx: 12:37 Cerebral Palsy; Seizures; sr5 - PSHx: 12:37 foot; ovary removal RIGHT; sr5 - Immunization history:: Flu vaccine is up to date. - Social history:: Smoking status: Patient/guardian denies using tobacco, never smoked. - Ebola Screening: : Patient negative for fever greater than or equal to 101.5 degrees Fahrenheit, and additional compatible Ebola Virus Disease symptoms. Screenin:10 Abuse screen: Denies threats or abuse. Nutritional screening: No deficits noted. em Tuberculosis screening: No symptoms or risk factors identified. Fall Risk None identified. Assessment: 13:10 General: Appears in no apparent distress. uncomfortable, Behavior is calm, cooperative, em Denies fever. Pain: Complains of pain in forehead Pain currently is 7 out of 10 on a pain scale. Neuro: Level of Consciousness is awake, alert, obeys commands, Oriented to person, place, time, situation, Appropriate for age Reports headache. Cardiovascular: Capillary refill < 3 seconds Patient's skin is warm and dry. Respiratory: Airway is patent Respiratory effort is even, unlabored, Respiratory pattern is regular, symmetrical. GI: Abdomen is flat, Reports nausea, vomiting. : Denies burning with urination. Derm: Skin is intact, is healthy with good turgor, Skin is pink, warm \T\ dry. Musculoskeletal: Capillary refill < 3 seconds, Range of motion: intact in all extremities. 13:30 Reassessment: nausea unchanged, provider notified. em 14:00 Reassessment: Patient appears in no apparent distress at this time. Patient and/or em family updated on plan of care and expected duration. Pain level reassessed. Patient is alert, oriented x 3, equal unlabored respirations, skin warm/dry/pink. nausea has improved, pt reports headache /10, provider notified. 15:05 Reassessment: Patient appears in no apparent distress at this time. Patient and/or em family updated on plan of care and expected duration. Pain level reassessed. Patient is alert, oriented x 3, equal unlabored respirations, skin warm/dry/pink. Patient denies pain at this time. Patient states feeling better. Patient states symptoms have improved. Vital Signs: 12:37 BP 116 / 85; Pulse 137; Resp 14; Temp 98.2; Pulse Ox 96% on R/A; Weight 49.44 kg (R); sr5 Height 5 ft. 2 in. (157.48 cm) (R); Pain 7/10; 13:15 BP 110 / 72; Pulse 118; Resp 20; Pulse Ox 99% on R/A; Pain 7/10; em 14:50 BP 111 / 78; Pulse 103; Resp 18; Pulse Ox 99% on R/A; Pain 0/10; em 16:40 BP 117 / 69; Pulse 92; Resp 20; Temp 98.2; Pulse Ox 100% on R/A; dm5 12:37 Body Mass Index 19.94 (49.44 kg, 157.48 cm) sr5 ED Course: 12:17 Patient arrived in ED. rg4 12:22 Val Sorensen FNP-C is PHCP. kb 12:22 Yadiel Marino MD is Attending Physician. kb 12:37 Triage completed. sr5 12:37 Arm band placed on right wrist. sr5 12:48 Otilio Ferguson LVN is Primary Nurse. em 13:10 Patient has correct armband on for positive identification. Placed in gown. Bed in low em position. Call light in reach. Side rails up X2. Adult w/ patient. Pulse ox on. NIBP on. 13:20 Initial lab(s) drawn, by me, sent to lab. Inserted saline lock: 22 gauge in right em antecubital area, using aseptic technique. Blood collected. 13:53 Radiology exam delayed due to test not completed at this time. vm2 14:20 Radiology exam delayed due to test not completed at this time. vm2 14:43 CT Abd/Pelvis - IV Contrast Only In Process Unspecified. EDMS 16:41 IV discontinued, intact, bleeding controlled, No redness/swelling at site. Pressure dm5 dressing applied. 16:42 No provider procedures requiring assistance completed. dm5 Administered Medications: 13:10 Drug: NS 0.9% 1000 ml Route: IV; Rate: 1000 ml; Site: right antecubital; em 13:11 Drug: Zofran 4 mg Route: IVP; Site: right antecubital; iw 13:39 Follow up: Response: No adverse reaction; Nausea unchanged em 13:47 Drug: Phenergan 12.5 mg Route: IVP; Site: right antecubital; iw 14:08 Follow up: Response: No adverse reaction; Nausea is decreased em 14:20 Drug: NS 0.9% 1000 ml Route: IV; Rate: 1000 ml; Site: right antecubital; em 14:20 Drug: TORadol - Ketorolac 15 mg Route: IVP; Site: right antecubital; iw 15:13 Follow up: Response: No adverse reaction; Pain is decreased em Outcome: 15:28 Discharge ordered by MD. whipple 16:41 Discharged to home ambulatory, with family. dm5 16:41 Condition: good 16:41 Discharge instructions given to patient, family, Instructed on discharge instructions, follow up and referral plans. hydration Demonstrated understanding of instructions, follow-up care. 16:42 Patient left the ED. dm5 Signatures: Dispatcher [employer] EDMS Val Sorensen, BUTCHER HELPER-C BUTCHER HELPER-Danita Parsons, RN RN dm5 Otilio Ferguson, CONTROL VALVE TECHNICIAN CONTROL VALVE TECHNICIAN em Vandana Mclean RN RN Ralph Goncalves RN RN sr5 [place] 4 Melissa Bae 2 Corrections: (The following items were deleted from the chart) 12:41 12:30 Presenting complaint: Patient states: ovary removal surgery on 03/[address], c/o CASTILL[place], V/D/ epigastric pain started on Thursday. CASTILLO now resolved, taking prescribed promethazine at home, no vomiting today. Vomiting/diarrhea x 3 yesterday [facility] 15:27 14:50 BP 111 / 78; Pulse 103bpm; Resp 18bpm; Pulse Ox 99% RA; em em
--- NOTE | 2019-03-17 15:30 | EDPHYS ---
Physician Documentation [facility] Name: Ailin Ivey Age: 18 yrs Sex: Female : 2000 Arrival Date: 03/17/2019 Time: 12:17 Bed 18 Private MD: ED Physician Yadiel Marino HPI: 03/17 14:35 This 18 yrs old Female presents to ER via Ambulatory with complaints of kb Headache, Vomiting, Weakness. 14:37 The patient presents to the emergency department with nausea, vomiting, diarrhea. kb Onset: The symptoms/episode began/occurred 2 day(s) ago. Possible causes: unknown. The symptoms are aggravated by nothing. The symptoms are alleviated by nothing. Associated signs and symptoms: Pertinent positives: diarrhea, nausea, vomiting. Severity of symptoms: At their worst the symptoms were moderate in the emergency department the symptoms are unchanged. The patient has not experienced similar symptoms in the past. The patient has been recently seen by a physician:. Pt reports she had her left ovary removed on 03/10/19 and has had soreness to left lower abd since then. Started having n/v/d 2 days ago. Denies fever. Reports she came in because she wasn't sure if the surgery and the more recent symptoms were related.. 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 - Social history:: Smoking status: Patient/guardian denies using tobacco, never smoked. - Ebola Screening: : Patient negative for fever greater than or equal to 101.5 degrees Fahrenheit, and additional compatible Ebola Virus Disease symptoms. ROS: 14:35 Constitutional: Negative for fever, chills, and weight loss, ENT: Negative for injury, kb pain, and discharge, Neck: Negative for injury, pain, and swelling, Cardiovascular: Negative for chest pain, palpitations, and edema, Respiratory: Negative for shortness of breath, cough, wheezing, and pleuritic chest pain, Back: Negative for injury and pain, : Negative for injury, bleeding, discharge, and swelling, MS/Extremity: Negative for injury and deformity, Skin: Negative for injury, rash, and discoloration, Neuro: Negative for headache, weakness, numbness, tingling, and seizure. 14:35 Abdomen/GI: Positive for abdominal pain, nausea, vomiting, and diarrhea. Exam: 14:35 Constitutional: This is a well developed, well nourished patient who is awake, alert, kb and in no acute distress. Head/Face: Normocephalic, atraumatic. ENT: Nares patent. No nasal discharge, no septal abnormalities noted. Tympanic membranes are normal and external auditory canals are clear. Oropharynx with no redness, swelling, or masses, exudates, or evidence of obstruction, uvula midline. Mucous membranes moist. Neck: Trachea midline, no thyromegaly or masses palpated, and no cervical lymphadenopathy. Supple, full range of motion without nuchal rigidity, or vertebral point tenderness. No Meningismus. Chest/axilla: Normal chest wall appearance and motion. Nontender with no deformity. No lesions are appreciated. Cardiovascular: Regular rate and rhythm with a normal S1 and S2. No gallops, murmurs, or rubs. Normal PMI, no JVD. No pulse deficits. Respiratory: Lungs have equal breath sounds bilaterally, clear to auscultation and percussion. No rales, rhonchi or wheezes noted. No increased work of breathing, no retractions or nasal flaring. Back: No spinal tenderness. No costovertebral tenderness. Full range of motion. Skin: Warm, dry with normal turgor. Normal color with no rashes, no lesions, and no evidence of cellulitis. MS/ Extremity: Pulses equal, no cyanosis. Neurovascular intact. Full, normal range of motion. Neuro: Awake and alert, GCS 15, oriented to person, place, time, and situation. Cranial nerves II-XII grossly intact. Motor strength 5/5 in all extremities. Sensory grossly intact. Cerebellar exam normal. Normal gait. 14:35 Abdomen/GI: Inspection: surgical incisions to umbilicus, llq, and suprapubic area that are healing well, no redness, drainage or swelling noted, Bowel sounds: normal, in all quadrants, Palpation: soft, in all quadrants, mild abdominal tenderness, in the left lower quadrant. Vital Signs: 12:37 BP 116 / 85; Pulse 137; Resp 14; Temp 98.2; Pulse Ox 96% on R/A; Weight 49.44 kg (R); sr5 Height 5 ft. 2 in. (157.48 cm) (R); Pain 7/10; 13:15 BP 110 / 72; Pulse 118; Resp 20; Pulse Ox 99% on R/A; Pain 7/10; em 14:50 BP 111 / 78; Pulse 103; Resp 18; Pulse Ox 99% on R/A; Pain 0/10; em 16:40 BP 117 / 69; Pulse 92; Resp 20; Temp 98.2; Pulse Ox 100% on R/A; dm5 12:37 Body Mass Index 19.94 (49.44 kg, 157.48 cm) sr5 MDM: 12:42 Patient medically screened. kb 14:37 Data reviewed: vital signs, nurses notes. Data interpreted: Pulse oximetry: on room air kb is 99 %. Interpretation: normal. 15:27 Counseling: I had a detailed discussion with the patient and/or guardian regarding: the kb historical points, exam findings, and any diagnostic results supporting the discharge/admit diagnosis, lab results, radiology results, the need for outpatient follow up, a family practitioner, to return to the emergency department if symptoms worsen or persist or if there are any questions or concerns that arise at home. 03/17 12:49 Order name: Basic Metabolic Panel; Complete Time: 13:32 kb 03/17 12:49 Order name: CBC with Diff; Complete Time: 13:21 kb 03/17 13:49 Order name: CT Abd/Pelvis - IV Contrast Only; Complete Time: 14:55 kb 03/17 14:25 Order name: Urine Dipstick--Ancillary (enter results); Complete Time: 15:36 eb 03/17 14:25 Order name: Urine --Ancillary (enter results); Complete Time: 15:36 eb 03/17 12:49 Order name: IV Saline Lock; Complete Time: 13:10 kb 03/17 12:49 Order name: Labs collected and sent; Complete Time: 13:10 kb 03/17 13:49 Order name: Urine Test (obtain specimen); Complete Time: 14:32 kb 03/17 13:49 Order name: Urine Dipstick-Ancillary (obtain specimen); Complete Time: 14:32 kb Administered Medications: 13:10 Drug: NS 0.9% 1000 ml Route: IV; Rate: 1000 ml; Site: right antecubital; em 13:11 Drug: Zofran 4 mg Route: IVP; Site: right antecubital; iw 13:39 Follow up: Response: No adverse reaction; Nausea unchanged em 13:47 Drug: Phenergan 12.5 mg Route: IVP; Site: right antecubital; iw 14:08 Follow up: Response: No adverse reaction; Nausea is decreased em 14:20 Drug: NS 0.9% 1000 ml Route: IV; Rate: 1000 ml; Site: right antecubital; em 14:20 Drug: TORadol - Ketorolac 15 mg Route: IVP; Site: right antecubital; iw 15:13 Follow up: Response: No adverse reaction; Pain is decreased em Disposition: 19:06 Co-signature as Attending Physician, Yadiel Marino MD. rn Disposition: 03/17/19 15:28 Discharged to Home. Impression: Nausea and vomiting, Diarrhea, unspecified, Volume depletion. - Condition is Stable. - Discharge Instructions: Food Choices to Help Relieve Diarrhea, Adult, Viral Gastroenteritis, Adult, [id number], Dehydration, Adult, [id number]. - Medication Reconciliation Form, Thank You Letter, Antibiotic Education, Prescription Opioid Use form. - Follow up: Emergency Department; When: As needed; Reason: Worsening of condition. Follow up: Private Physician; When: 2 - 3 days; Reason: Recheck today's complaints, Continuance of care, Re-evaluation by your physician. Signatures: Dispatcher [employer] Val Bonner, CERTIFIED PEST CONTROL TECHNICIAN-C CERTIFIED PEST CONTROL TECHNICIAN-Danita Parsons, RN RN dm5 Otilio Ferguson, ORNAMENTAL METAL WORKER APPRENTICE ORNAMENTAL METAL WORKER APPRENTICE Vandana Patino, RN Yadiel Hall MD MD rn Resecker, Ralph, RN RN sr5 Corrections: (The following items were deleted from the chart) 16:42 15:28 03/17/2019 15:28 Discharged to Home. Impression: Nausea and vomiting; Diarrhea, dm5 unspecified; Volume depletion. Condition is Stable. Forms are Medication Reconciliation Form, Thank You Letter, Antibiotic Education, Prescription Opioid Use. Follow up: Emergency Department; When: As needed; Reason: Worsening of condition. Follow up: Private Physician; When: 2 - 3 days; Reason: Recheck today's complaints, Continuance of care, Re-evaluation by your physician. kb
[2019-03-17 15:34] LABS: Urine Blood 3+ (NEG); Urine Glucose NEGATIVE (NEG); Urine Protein TRACE (NEG); Urine Specific Gravity 1.015 (1.005-1.030)
[2019-03-17 17:33] VITALS: TEMP 98.2
[2019-03-17 17:35] VITALS: O2SAT 99
[2019-03-17 17:36] VITALS: BP 111/78
== END 2019-03-17 16:42 | disposition home or self-care (01) ==
LOC: ER 12:13
DX: E86.9 Volume depletion, unspecified (principal); R19.7 Diarrhea, unspecified; Z88.0 Allergy status to penicillin; Z88.5 Allergy status to narcotic agent
CPT/HCPCS: 85025; 80048; 36415; 81025; 81003; 74177; 96375; 96374; 99284; Q9967; J2550; J7030 ×2; J2405